=== PATIENT | male | born 1955 | race Caucasian/White ===

== ENCOUNTER 2018-07-17 06:27 | Day surgery (SDC) | payer OTHER ==
[~2018-07-17] VITALS: Ht 175.3 cm; Wt 74.4 kg
--- NOTE | ~2018-07-17 | H ---
[facility] [place] [address] HISTORY AND PHYSICAL Name: LUCAS MARTIN Room #: 150-8 [facility] M.R.#: [id number] Admission: 07/17/18 Attend Phys: Adithya Quiles MD Discharge: Date of : 51 Report #: [id number] THIS REPORT FOR: //name// CC: [facility] physician/PCP Adithya Quiles PREOPERATIVE DIAGNOSIS: Symptomatic left inguinal hernia. HISTORY OF PRESENT ILLNESS: The patient is a 63-year-old who did have a right inguinal hernia repair in 2009. The patient now presents with a left inguinal hernia. This started to act up on 03/08. It has increased in size now. The patient has quite a bit of discomfort. The patient is still very active, works around the house. The hernia is more noticeable and definitely pushing out more. The patient does not have any issue with his bowels. No nausea or vomiting. The patient does have some urinary frequency. No chronic history of cough or sneeze. PAST MEDICAL HISTORY: The patient denies any heart disease, lung disease. No high blood pressure, no diabetes. Apparently, he has not seen a physician since 2009 when I did the last surgery. PAST SURGICAL HISTORY: Tonsillectomy at age 3 or 4, right rotator cuff in 2008, right inguinal hernia in 2009. MEDICATIONS: Hxek-ywk-pfkrtdi antihistamine, ibuprofen, Tylenol, guaifenesin. ALLERGIES: THE PATIENT IS ALLERGIC TO PENICILLIN. FAMILY HISTORY: Cancer on father's side. SOCIAL HISTORY: The patient is retired. Does not smoke and rarely drinks. REVIEW OF SYSTEMS: The patient wears glasses to read. No chest pain, shortness of breath or palpitation. No weakness or numbness. PHYSICAL EXAMINATION: GENERAL: The patient is well-nourished male in no acute distress. HEENT: Pupils react to light. Extraocular muscles are intact. Oropharynx is clear. NECK: Soft and supple, no masses. No JVD. LUNGS: Clear to auscultation. HEART: Regular rate and rhythm. No murmur or gallop. ABDOMEN: Soft, nondistended, nontender. No mass, no ascites. The patient does have a moderate-sized left inguinal hernia. No recurrence on the right side. Testicles are descended. No masses. EXTREMITIES: No cyanosis, clubbing, edema. [address] [address] HISTORY AND PHYSICAL Name: LUCAS MARTIN Room #: 150-8 [facility] M.R.#: [id number] Admission: 07/17/18 Attend Phys: Adithya Quiles MD Discharge: Date of : 51 Report #: [id number] IMPRESSION: The patient with a symptomatic left inguinal hernia who is here for repair. The patient did have a right-sided hernia repair 8 years ago laparoscopically. The patient will undergo a laparoscopic repair of a left-sided hernia with mesh. Procedure was discussed in detail including the risk of bleeding, infection, mesh infection, hernia recurrence. The patient understands and wished to proceed. By: [id number] Adithya Quiles MD /nt
--- NOTE | ~2018-07-17 | EKG ---
[address] [address] ELECTROCARDIOGRAM REPORT Name: LUCAS MARTIN Room #: 150-8 [facility] M..#: [id number] Admission: 07/17/18 Attend Phys: Adithya Quiles MD Discharge: Date of : 51 Report #: [id number] THIS REPORT FOR: //name// [facility] Test Date: 2018-07-17 Test Time: 10:37:09 Pat Name: LUCAS MARTIN Department: Room: 150 8 Gender: M Moving Picture Operator: fabiola : 1955 Requested By: Adithya Quiles Order Number: [id number] MD: Hadley Collins Measurements Intervals [place] Rate: 99 P: 58 CT: 142 QRS: 49 QRSD: 93 T: 34 QT: 355 QTc: 456 Interpretive Statements Sinus rhythm Early transition Nonspecific ST-T wave changes Compared to ECG 11/13/2008 08:56:27 No significant changes Electronically Signed On 07-17-2018 12:21:52 FIELD CROPS HARVEST MACHINE OPERATOR by Hadley Collins [email or web address] <ELECTRONICALLY SIGNED> By: Hadley Collins MD 07/17/18 1221 [facility] Hadley Collins MD /EPI
--- NOTE | ~2018-07-17 | O ---
[facility] [place] [address] OPERATIVE REPORT Name: VERONICALUCAS SAXENA Room #: DEP [facility]..#: [id number] Admission: 07/17/18 Attend Phys: Adithya Quiles MD Discharge: 07/17/18 Date of : 51 Report #: [id number] THIS REPORT FOR: //name// CC: [facility] physician/PCP Adithya Quiles DATE OF SERVICE: 07/17/2018 PREOPERATIVE DIAGNOSIS: Left inguinal hernia. POSTOPERATIVE DIAGNOSIS: Left direct inguinal hernia. PROCEDURES PERFORMED: Laparoscopic properitoneal repair of left direct inguinal hernia with large 3DMax lightweight mesh. COMPLICATIONS: None. ESTIMATED BLOOD LOSS: 5 mL. ANESTHESIA: General anesthesia. SURGEON: Adithya Quiles M.D. DESCRIPTION OF PROCEDURE: With the patient under general anesthesia, abdomen was prepped and draped in sterile fashion. Timeout was performed. Young catheter was placed preoperatively. The patient received IV antibiotics preoperatively. A 0.25% Marcaine was used to anesthetize the skin adjacent to the umbilicus on the left side. Incision is about 2 cm. The anterior rectus sheath was then identified and opened transversely. The muscle was spread. The space between the muscle and the posterior sheath was dissected bluntly. Balloon trocar was then placed through the space. CO2 was placed through this. A 5-mm trocar was placed about 2 inches below the umbilicus. Dissection was then carried out using cautery and blunt dissection. Dissection was carried out laterally. The left inferior epigastric artery and vein were identified and preserved from harm. Slightly medial to this, the previous right-sided mesh did cross the midline. The lateral abdominal wall was freed up. The cord structure was isolated. Peritoneal reflection was identified on the cord. There was no indirect sac. Medially, there was a fatty tissue stuck to the medial part of the wall. This was freed up, which brought it out of the hernia defect. There was a direct hernia defect present. Dissection was then carried exposing the pubic bone. Dissection was then carried out underneath the previous mesh in the properitoneal space. A large 3D Max lightweight mesh was then placed through the 11-mm balloon trocar. This was opened up in the properitoneal space. This covered the internal ring and covered the fascial defect with a direct hernia well. Mesh was then tacked with SorbaFix. The mesh was tacked laterally to the abdominal wall, inferiorly to Karel's ligament around the defect. The mesh [address] [address] OPERATIVE REPORT Name: LUCAS MARTIN Room #: DEP [facility]..#: [id number] Admission: 07/17/18 Attend Phys: Adithya Quiles MD Discharge: 07/17/18 Date of : 51 Report #: [id number] extended about 2.5 cm inferior to the fascia defect and also 2.5 cm or so medial to the fascia defect. CO2 was then evacuated. There was a pneumoperitoneum identified. The posterior fascia was opened. Peritoneum was opened. The CO2 was evacuated from the abdominal cavity without difficulty. This posterior sheath opening was closed with [id number] 0 Vicryl. The anterior fascia was closed with [id number] 0 Vicryl x 2. Skin was irrigated and skin was closed with 5-0 PDS. Steri-Strip, Band-Aids applied. The patient was awake and taken to the recovery room. By: [id number] Adithya Quiles MD /nt
[~2018-07-17 06:27] MED LIST: ALLERGY-TIME4 MG PO; APAP650; GUAIFENESIN200 MG PO; IBUPROFEN 200200 M1 PO; TYLENOL EXTRA500 MG PO
[2018-07-17 10:27] LABS: HEMATOCRIT 45.4 % (42.0-52.0); HEMOGLOBIN 15.6 gm/dL (14.0-18.0)
[2018-07-17 11:00] VITALS: BP 146/86
[2018-07-17] MEDS ORDERED: NORCO 5-325 TA1 EACH PO (13:18)
[2018-07-17 13:32] VITALS: BP 146/86
== END 2018-07-17 14:00 | disposition home or self-care (01) ==
LOC: TBA 06:27 → OR 06:27 → TBA 06:28 → OR 09:23
PROVIDERS: Surgery
DX: K40.90 Unilateral inguinal hernia, without obstruction or gangrene, not specified as recurrent (principal); Z98.890 Other specified postprocedural states; Z88.0 Allergy status to penicillin; Z87.891 Personal history of nicotine dependence
CPT/HCPCS: 50010; 50101; 50411; 50507; 50555; 50848; 53065; 53307; 56525; 56526; 56805; 62110; 62900; 70005